=== PATIENT | male | born 1970 | race Caucasian/White ===

== ENCOUNTER 2016-10-17 00:29 | Emergency (ER) | payer OTHER ==
[2016-10-17 00:37] VITALS: BP 130/90
[2016-10-17] MEDS ORDERED: Tetan/Diph/Pertus SYR(Tdap)* 0.5 ML SYR(BOOSTRIX) use SYR IM ONE (01:06)
--- NOTE | 2016-10-17 01:10 | ED ---
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 The volar aspect of the finger was pinched in a hinge of the pond. His is not sure if his tetanus is up to date. He washed the area with tap water and soap. He denies N/T and is able to move the digit fully. - History of Current Complaint Stated Complaint: RIGHT MIDDLE FINGER LAC Hx Obtained From: Patient Mechanism of Injury: Sharp/Blunt Trauma Onset/Duration: Sudden Onset Aggravating: Movement Alleviating: Compression Timing: Constant Onset Severity: Moderate Current Severity: Mild Pain Intensity: 2 Associated Signs & Symptoms: Pain Related Hx: Dominant Hand (Right) - Allergy/Home Medications Allergies/Adverse Reactions: Allergies Allergy/AdvReac Type Severity Reaction Status Date / Time Morphine Allergy Mild Nausea And Verified 10/31/15 08:58 Vomiting PMH/Surg Hx/FS Hx/Imm Hx Endocrine/Hematology History: Denies: Hx Diabetes Cardiovascular History: Denies: Hx Hypertension, Hx Pacemaker/ICD Respiratory History: Reports: Hx Pneumonia - as well as bronchitis Denies: Hx Asthma GI History: Reports: Other GI Disorders - 2006 gastric bypass History: Reports: Hx Kidney Stones - 2009 & CURRENT (10/2015) Denies: Hx Renal Disease Musculoskeletal History: Reports: Hx Arthritis - ALBOWS, FEET, STATES MILD Sensory History: Denies: Hx Hearing Aid Psychiatric History: Denies: Hx Panic Disorder - Surgical History Surgery Procedure, Year, and Place: [place] [facility] [place] BYPASS [facility]. 1999s ANKLE RECONSTRUSTION [place]. 2009 [place] [facility] [place] Anesthesia Reactions: Yes - USUALLY NAUSEA, GFAGS, CAN'T VOMIT Infectious Disease History: No Infectious Disease History: Denies: Traveled Outside the [place] in Last 30 Days - Family History Known Family History: Positive: Unknown - Social History Occupation: Employed Full-time Lives: With Family Alcohol Use: Rare Alcohol Amount: LESS THEN MONTHLY Substance Use Type: Reports: None Hx Tobacco Use: No Smoking Status (MU): Never Smoked Tobacco Have You Smoked in the Last Year: No Review of Systems Positive: Other - 1 cm laceration to right middle finger Negative: Paresthesia, Numbness All Other Systems Reviewed And Are Negative: Yes Physical Exam Triage Information Reviewed: Yes Vital Signs On Initial Exam: Initial Vitals Temp Pulse Resp BP Pulse Ox 97.9 F 60 18 130/90 99 10/17/16 00:34 10/17/16 00:34 10/17/16 00:34 10/17/16 00:34 10/17/16 00:34 Vital Signs Reviewed: Yes Appearance: Positive: Well-Appearing, No Pain Distress, Obese Skin: Positive: Warm, Skin Color Reflects Adequate Perfusion, Dry, Tender - 1 cm long laceration to dorsum of right middle finger, Soft Head/Face: Positive: Normal Head/Face Inspection Eyes: Positive: EOMI, NIYAH, Conjunctiva Clear ENT: Positive: Hearing grossly normal Respiratory/Lung Sounds: Positive: Breath Sounds Present Cardiovascular: Positive: RRR Musculoskeletal: Positive: Strength/ROM Intact, Edema Right - middle finger Neurological: Positive: Sensory/Motor Intact, Alert, Oriented to Person Place, Time, NV Bundle Intact Distally, Normal Gait Psychiatric: Positive: Affect/Mood Appropriate AVPU Assessment: Alert Procedures - Laceration/Wound Repair 1 Location: upper extremity - right middle finger Description: Linear Anesthesia: Local, 2.0%, Lido Length, Depth and Shape: 1 cm long, 4mm wide, 2 mm deep Betadine Prep?: No Irrigated w/ Saline (ccs): 100 Laceration/Wound Explored: clean Closure: Single Layer Debridement: minimal Suture Type: Nylon - 5.0 Number of Sutures: 5 - 4 vertical matresses, 1 simple interupted Layer Closure?: No Sterile Dressing Applied?: Yes Diagnostics - Vital Signs Vital Signs Temp Pulse Resp BP Pulse Ox 10/17/16 00:37 97.9 F 63 18 130/90 98 10/17/16 00:34 97.9 F 60 18 130/90 99 - Laboratory Lab Statement: Any lab studies that have been ordered have been reviewed, and results considered in the medical decision making process. Laceration Repair Course/Dx - Differential Dx Differental Diagnoses: Abrasion, Avulsion, Compartment Syndrome, Hematoma, Laceration, Puncture Wound - Clinical Impression Provider Diagnoses: Laceration of finger of right hand, Tetanus toxoid inoculation Discharge - Discharge Plan Condition: Stable Disposition: HOME Patient Education Materials: Finger Laceration (ED) Referrals: Robert Dennis MD [Primary Care Provider] - Additional Instructions: Keep your dressing clean, dry and in place for the next 24 hours. You may then remove and shower. Pat dry and cover with a clean, dry band-aid if you are going to be in a "dirty" environment, otherwise it can remain open to air. Do not soak the wound in any body of water until the sutures are removed. Elevate the hand above your heart and use Ibuprofen 600mg three times daily with meals for the next 5-7 days to reduce pain and swelling. Follow-up with your primary care provider or return to the emergency department in 10-12 days for suture removal. Return to the emergency department sooner if your symptoms worsen
== END 2016-10-17 01:18 | disposition home or self-care (01) ==
LOC: ED 00:29
DX: S61.212A Laceration without foreign body of right middle finger without damage to nail, initial encounter (principal); S61.218A Laceration without foreign body of other finger without damage to nail, initial encounter; W45.8XXA Other foreign body or object entering through skin, initial encounter; Y93.9 Activity, unspecified; Y92.9 Unspecified place or not applicable
CPT/HCPCS: 12001; 90471; 90715; 99282

== ENCOUNTER 2016-12-11 11:12 | Emergency (ER) | payer OTHER ==
--- NOTE | 2016-12-11 12:57 | RAD ---
HISTORY: Fall, left knee pain COMPARISONS: None VIEWS: 4, Frontal, lateral, axial, and oblique views of the left knee FINDINGS: BONE DENSITY: Normal. BONES: There is no displaced fracture. JOINTS: There is no arthropathy. There is a large suprapatellar joint effusion. There is no appreciable lipohemarthrosis. ALIGNMENT: There is no dislocation. SOFT TISSUES: Unremarkable. OTHER FINDINGS: None. IMPRESSION: NO ACUTE OSSEOUS INJURY. JOINT EFFUSION. IF SYMPTOMS PERSIST, RECOMMEND REPEAT IMAGING.
[2016-12-11 13:24] VITALS: BP 134/77
--- NOTE | 2016-12-11 16:26 | ED ---
Lower Extremity - HPI Summary HPI Summary: Patient presents to ED with left knee pain after injury during a softball game yesterday. He states the mechanism of injury included running and abruptly stopping and twisting his knee. Knee is swollen with no ecchymosis surrounding. He states there is stiffness and tightness over the knee. Denies pain at rest. Pain worse with flexing the knee. Patient states there was laxity and instability when walking. Denies other injuries. - History of Current Complaint Chief Complaint: EDExtremityLower Stated Complaint: LEFT KNEE PAIN, Time Seen by Provider: 12/11/16 11:41 Hx Obtained From: Patient Mechanism Of Injury: Twisted Onset of Pain: Immediate Onset/Duration: Hours Severity Initially: Moderate Severity Currently: Moderate Pain Intensity: 3 Pain Scale Used: 0-10 Numeric Timing: Constant Location: Is Discrete @ - left knee Character Of Pain: Aching Associated Signs And Symptoms: Positive: Swelling Aggravating Factor(s): Standing, Ambulation, Movement, Weight Bearing, Stairs Alleviating Factor(s): Rest Able to Bear Weight: No - Risk Factors Gout Risk Factors: Negative DVT Risk Factors: Negative Septic Arthritis Risk Factor: Negative - Allergies/Home Medications Allergies/Adverse Reactions: Allergies Allergy/AdvReac Type Severity Reaction Status Date / Time Morphine Allergy Mild Nausea And Verified 12/11/16 11:17 Vomiting PMH/Surg Hx/FS Hx/Imm Hx Previously Healthy: Yes Endocrine/Hematology History: Denies: Hx Diabetes Cardiovascular History: Denies: Hx Hypertension, Hx Pacemaker/ICD Respiratory History: Reports: Hx Pneumonia - as well as bronchitis Denies: Hx Asthma GI History: Reports: Other GI Disorders - 2006 gastric bypass History: Reports: Hx Kidney Stones - 2009 & CURRENT (10/2015) Denies: Hx Renal Disease Musculoskeletal History: Reports: Hx Arthritis - ALBOWS, FEET, STATES MILD Sensory History: Denies: Hx Hearing Aid Psychiatric History: Denies: Hx Panic Disorder - Surgical History Surgery Procedure, Year, and Place: 1996 APPENDECTOMY, [facility] [place]. 2006 GASTRIC BYPASS [facility]. 1999s AN[place]LE RECONSTRUSTION [place]. 2010 RT URETEROSCOPY [facility] [place] Hx Anesthesia Reactions: Yes - USUALLY NAUSEA, GFAGS, CAN'T VOMIT - Immunization History Hx Pertussis Vaccination: No Immunizations Up to Date: Unable to Obtain/Confirm Infectious Disease History: No Infectious Disease History: Denies: Traveled Outside the [place] in Last 30 Days - Family History Known Family History: Positive: Unknown - Social History Occupation: Employed Full-time Lives: With Family Alcohol Use: Rare Alcohol Amount: LESS THEN MONTHLY Hx Substance Use: No Substance Use Type: Reports: None Hx Tobacco Use: No Smoking Status (MU): Never Smoked Tobacco Have You Smoked in the Last Year: No Review of Systems Constitutional: Negative Cardiovascular: Negative Respiratory: Negative Positive: no symptoms reported, see HPI Positive: Arthralgia, Myalgia Skin: Negative Neurological: Negative Psychological: Normal All Other Systems Reviewed And Are Negative: Yes Physical Exam Triage Information Reviewed: Yes Vital Signs On Initial Exam: Initial Vitals Temp Pulse Resp BP Pulse Ox 96.9 F 62 18 134/88 100 12/11/16 11:18 12/11/16 11:18 12/11/16 11:18 12/11/16 11:18 12/11/16 11:18 Vital Signs Reviewed: Yes Appearance: Positive: Well-Appearing, No Pain Distress, Well-Nourished Skin: Positive: Warm, Skin Color Reflects Adequate Perfusion Head/Face: Positive: Normal Head/Face Inspection Eyes: Positive: NIYAH, Conjunctiva Clear Neck: Positive: Supple, No Lymphadenopathy Respiratory/Lung Sounds: Positive: Clear to Auscultation, Breath Sounds Present Cardiovascular: Positive: Normal, RRR Musculoskeletal: Positive: Pain @ - left knee pain; anterior drawer positive; lachmans positive; posterior drawer negative Neurological: Positive: Alert, Oriented to Person Place, Time, Speech Normal Psychiatric: Positive: Normal AVPU Assessment: Alert Diagnostics - Vital Signs Vital Signs Temp Pulse Resp BP Pulse Ox 12/11/16 13:23 97.8 F 66 17 134/77 12/11/16 11:18 96.9 F 62 18 134/88 100 - Laboratory Lab Statement: Any lab studies that have been ordered have been reviewed, and results considered in the medical decision making process. Lower Extremity Course/Dx - Course Course Of Treatment: Patient presents s/p left knee injury with left knee pain and swelling. Xray negative for acute findings. Likely acl injury. Anterior drawer and Lachmans test positive. Knee immobilizer given. Crutches given. Ibuprofen 600mg three times daily. Follow up with Dr. Morgan. - Diagnoses Differential Diagnosis/HQI/PQRI: Positive: Contusion, Fracture (Closed), Fracture (Open), Strain Provider Diagnoses: Knee sprain Discharge - Discharge Plan Condition: Stable Disposition: HOME Patient Education Materials: Swollen Knee Joint (ED), Knee Pain (ED) Referrals: Robert Dennis MD [Primary Care Provider] - Malinda Morgan MD [Medical Doctor] - Additional Instructions: Follow up with Dr. Morgan rest, ice, compression of the injured knee, and elevation of the affected lower extremity. Crutches for instability Ibuprofen 600mg three times daily for pain
== END 2016-12-11 13:30 | disposition home or self-care (01) ==
LOC: ED 11:12
DX: S83.92XA Sprain of unspecified site of left knee, initial encounter (principal); X58.XXXA Exposure to other specified factors, initial encounter; Y93.9 Activity, unspecified; Y92.9 Unspecified place or not applicable
CPT/HCPCS: 99282

== ENCOUNTER 2019-07-31 22:26 | Emergency (ER) | payer OTHER ==
[2019-08-01] MEDS ORDERED: Amoxicillin/Clavulanate TAB* 875 MG PO ONE (00:16)
--- NOTE | 2019-08-01 00:26 | ED ---
Bite Injury/Animal - HPI Summary HPI Summary: Patient complains of dog bite to left hand with puncture wounds in the distal webbing between first and second digits of left hand and also of lateral proximal palmar surface of left hand. 2 abrasions to distal second and third digits. - History of Current Complaint Chief Complaint: EDAnimalBite Stated Complaint: DOG BITE PER PT Time Seen by Provider: 08/01/19 00:13 Hx Obtained From: Patient Onset of Injury: Happened minutes ago Type of Bite: Pet Has Animal Been Immunized?: Yes Severity Initially: Moderate Severity Currently: Moderate Pain Intensity: 7 Pain Scale Used: 0-10 Numeric Character: Puncture, Abrasion/Laceration Associated Signs And Symptoms: Positive: Swelling Animal Available for Observation: Yes - Allergies/Home Medications Allergies/Adverse Reactions: Allergies Allergy/AdvReac Type Severity Reaction Status Date / Time morphine Allergy Nausea And Verified 02/21/19 13:10 Vomiting PMH/Surg Hx/FS Hx/Imm Hx Endocrine/Hematology History: Denies: Hx Diabetes Cardiovascular History: Denies: Hx Hypertension, Hx Pacemaker/ICD Respiratory History: Reports: Hx Pneumonia - as well as bronchitis Denies: Hx Asthma GI History: Reports: Other GI Disorders - 2006 gastric bypass History: Reports: Hx Kidney Stones - 2009 & CURRENT (10/2015) Denies: Hx Renal Disease Musculoskeletal History: Reports: Hx Arthritis - ALBOWS, FEET, STATES MILD Sensory History: Denies: Hx Hearing Aid Opthamlomology History: Denies: Hx Legally Blind EENT History: Denies: Hx Deafness Neurological History: Denies: Hx Dementia Psychiatric History: Denies: Hx Panic Disorder - Surgical History Surgery Procedure, Year, and Place: 1996 [place]OMY, [facility] [place]. 2006 GASTRIC BYPASS [facility]. 2000s ANKLE RT RECONSTRUSTION [place]. 2010 RT URETEROSCOPY [facility] Hx Anesthesia Reactions: Yes - USUALLY NAUSEA, GFAGS, CAN'T VOMIT Infectious Disease History: No Infectious Disease History: Denies: Traveled Outside the [place] in Last 30 Days - Family History Known Family History: Positive: Unknown - Social History Alcohol Use: Rare Alcohol Amount: LESS THEN MONTHLY Hx Substance Use: No Substance Use Type: Reports: None Hx Tobacco Use: No Smoking Status (MU): Never Smoked Tobacco Have You Smoked in the Last Year: No Review of Systems Constitutional: Negative Eyes: Negative ENT: Negative Cardiovascular: Negative Respiratory: Negative Gastrointestinal: Negative Genitourinary: Negative Musculoskeletal: Negative Skin: Other Neurological: Negative Psychological: Normal All Other Systems Reviewed And Are Negative: Yes Physical Exam - Summary Physical Exam Summary: Patient has full range of motion at each individual joint of left hand. Normal flexion and extension of left wrist. No erythema, ecchymosis, deformity noted. Mild swelling. Triage Information Reviewed: Yes Vital Signs On Initial Exam: Initial Vitals Temp Pulse Resp BP Pulse Ox 98.2 F 63 20 139/93 95 07/31/19 22:33 07/31/19 22:33 07/31/19 22:33 07/31/19 22:33 07/31/19 22:33 Vital Signs Reviewed: Yes Appearance: Positive: Well-Appearing Skin: Positive: Warm Head/Face: Positive: Normal Head/Face Inspection Neck: Positive: Supple Respiratory/Lung Sounds: Positive: Clear to Auscultation Cardiovascular: Positive: Normal Abdomen Description: Positive: Nontender Musculoskeletal: Positive: Normal Neurological: Positive: Normal Psychiatric: Positive: Normal AVPU Assessment: Alert - [place] Coma Scale Best Eye Response: 4 - Spontaneous Best Motor Response: 6 - Obeys Commands Best Verbal Response: 5 - Oriented Coma Scale Total: 15 Procedures - Sedation Patient Received Moderate/Deep Sedation with Procedure: No Diagnostics - Vital Signs Vital Signs Temp Pulse Resp BP Pulse Ox 07/31/19 22:33 98.2 F 63 20 139/93 95 - Laboratory Lab Statement: Any lab studies that have been ordered have been reviewed, and results considered in the medical decision making process. Bite Injury Course/Dx - Course Course Of Treatment: Patient complains of dog bite to left hand with puncture wounds in the distal webbing between first and second digits of left hand and also of lateral proximal palmar surface of left hand. 2 abrasions to distal second and third digits. Vital signs within normal limits. Puncture wounds, no indication for suturing. Patient started on Augmentin. - Diagnoses Provider Diagnosis: Dog bite, Pain in left [place] Discharge ED - Sign-Out/Discharge Documenting (check all that apply): Patient Departure - Discharge Plan Condition: Stable Disposition: HOME Prescriptions: Amoxicillin/Clavulanate TAB* [Augmentin TAB 875*] 875 mg PO BID #20 tab Oxycodone HCl 5 mg PO BID 3 Days #6 tablet MDD 3 tabs Patient Education Materials: Animal Bite (ED), Leg Pain (ED) Referrals: Robert Dennis MD [Primary Care Provider] - Additional Instructions: Alternate ibuprofen 600 mg with Tylenol 650 mg every 3 hours for pain. Take antibiotics as directed. Keep hand clean and dry. Return to the ED for any new or worsening symptoms. - Billing Disposition and Condition Condition: STABLE Disposition: Home
[2019-08-01] MEDS ORDERED: oxyCODONE TAB* 5 MG TAB PO ONE (00:54)
[2019-08-01 01:08] VITALS: BP 128/93
== END 2019-08-01 01:08 | disposition home or self-care (01) ==
LOC: ED 22:26
DX: S81.852A Open bite, left lower leg, initial encounter (principal); W54.0XXA Bitten by dog, initial encounter; Y92.9 Unspecified place or not applicable; Z87.442 Personal history of urinary calculi
CPT/HCPCS: 99282; A9270-GY

== ENCOUNTER 2021-07-21 13:30 | Observation (INO) ==
[2021-07-21] MEDS ORDERED: Lactated Ringers 1000 ml BAG 1,000 ML IV ONE ×2 (13:56→14:08)
[2021-07-21] MEDS ORDERED: Dexamethasone IV 4 MG/ML VIAL 1 ml VIAL IV SLOW PU ONE (14:04)
[2021-07-21] MEDS ORDERED: Albuterol HFA INHALER 8 gm MDI INH ONE (14:05)
[2021-07-21 14:09] LABS: Hematocrit 45 % (42-52); Hemoglobin 15.6 g/dL (14.0-18.0); Mean Corpuscular HGB Conc 35 g/dL (31-36); Mean Corpuscular Hemoglobin 31 pg (27-31); Mean Corpuscular Volume 89 fL (80-94); Mean Platelet Volume 9.2 fL (7.4-10.4); Platelet Count 207 10^3/uL (150-450); Red Blood Count 5.01 10^6 /uL (4.18-5.48); Red Cell Distribution Width 15 % (10-15); White Blood Count 3.7 10^3/uL (3.5-10.8)
[2021-07-21 14:27] LABS: PO2 Arterial 116 mmHg (80-100)
[2021-07-21 14:28] LABS: Activated Partial Thrombo Time 32.6 seconds (26.0-38.0); INR 1.37 (0.86-1.15)
[2021-07-21 14:30] LABS: Albumin 4.2 g/dL (3.2-5.2); Albumin/Globulin Ratio 1.2 (1-3); C Reactive Protein 19.56 mg/L (<8.01); Calcium 8.8 mg/dL (8.6-10.3); Globulin 3.5 g/dL (2-4); Potassium 3.3 mmol/L (3.5-5.0); Total Bilirubin 0.8 mg/dL (0.2-1.0); Total Protein 7.7 g/dL (6.4-8.9); eGFR CKD-EPI 75.2 (>60)
[2021-07-21 14:31] LABS: PCO2 Arterial <20 mmHg (35-45)
[2021-07-21 14:40] LABS: Troponin I 0.01 ng/mL (<0.03)
[2021-07-21] MEDS ORDERED: LORazepam 2 mg VIAL 1 ml IV PUSH ONE (14:40)
[2021-07-21] MEDS ORDERED: Lorazepam PYXIS KEY PRN (14:40)
[2021-07-21 14:53] LABS: ABS Lymphocytes 1.6 10^3/ul (1.0-4.8); ABS Monocytes 0.4 10^3/ul (0-0.8); ABS Neutrophils 1.7 10^3/ul (1.5-7.7); Eosinophil % 0.1 %; Lymphocyte % 44.3 %; Nucleated Red Blood Cells % 0.5
[2021-07-21] MEDS ORDERED: Iohexol 350 (CONTRAST) 500 ML MDV IV ONE (15:08)
[2021-07-21 17:08] LABS: PCO2 Arterial 22 mmHg (35-45); PO2 Arterial 103 mmHg (80-100)
[2021-07-21] MEDS ORDERED: Potassium Chlor 20 meq TAB.ER PO ONE (18:13)
[2021-07-21] MEDS ORDERED: Ondansetron 4 mg VIAL 2 MG/ML 2 ml VIAL IV PRN (18:48)
[2021-07-21] MEDS ORDERED: Albuterol HFA INHALER 8 gm MDI INH PRN (18:52)
[2021-07-21] MEDS ORDERED: guaiFENesin/CODIENE 100mg/10mg 5 ML UDC PO PRN (18:52)
[2021-07-21] MEDS ORDERED: Remdesivir 100 mg Vial 200 MG in NS 0.9% 250 ml 210 ML IV ONE (18:53)
[2021-07-21 19:03] LABS: Magnesium 2.1 mg/dL (1.9-2.7)
[2021-07-21] MEDS: Enoxaparin 40 MG/0.4 ML SYR SUBCUT SCH (20:23)
[2021-07-21] MEDS: Lactated Ringers 1000 ml BAG 1,000 ML IV SCH (22:17)
[2021-07-21] MEDS: Calcium Polycarbophil 625mg TB PO SCH (22:18)
[2021-07-22 06:39] LABS: Hematocrit 39 % (42-52); Hemoglobin 13.3 g/dL (14.0-18.0); Mean Corpuscular HGB Conc 34 g/dL (31-36); Mean Corpuscular Hemoglobin 31 pg (27-31); Mean Corpuscular Volume 90 fL (80-94); Mean Platelet Volume 9.2 fL (7.4-10.4); Platelet Count 159 10^3/uL (150-450); Red Blood Count 4.33 10^6 /uL (4.18-5.48); Red Cell Distribution Width 15 % (10-15); White Blood Count 1.8 10^3/uL (3.5-10.8)
[2021-07-22 06:44] LABS: INR 1.26 (0.86-1.15)
[2021-07-22 06:46] LABS: ABS Neutrophils 0.9 10^3/ul (1.5-7.7)
[2021-07-22 06:57] LABS: Albumin 3.6 g/dL (3.2-5.2); Albumin/Globulin Ratio 1.2 (1-3); Calcium 8.1 mg/dL (8.6-10.3); Globulin 3.1 g/dL (2-4); Potassium 4.3 mmol/L (3.5-5.0); Total Bilirubin 0.4 mg/dL (0.2-1.0); Total Protein 6.7 g/dL (6.4-8.9); eGFR CKD-EPI 107.4 (>60)
[2021-07-22 07:42] LABS: ABS Lymphocytes 0.7 10^3/ul (1.0-4.8); ABS Monocytes 0.2 10^3/ul (0-0.8); Eosinophil % 0.1 %; Nucleated Red Blood Cells % 0.1
[2021-07-22] MEDS: Calcium Polycarbophil 625mg TB PO SCH ×2 (09:16→21:46)
[2021-07-22] MEDS: Lactated Ringers 1000 ml BAG 1,000 ML IV SCH ×2 (09:17→22:49)
[2021-07-22] MEDS: Enoxaparin 40 MG/0.4 ML SYR SUBCUT SCH (19:55)
[2021-07-22] MEDS ORDERED: Remdesivir 100 mg Vial 100 MG in NS 0.9% 250 ml 230 ML IV SCH (21:00)
[2021-07-23 06:32] LABS: INR 1.22 (0.86-1.15)
[2021-07-23 06:35] LABS: Albumin 3.2 g/dL (3.2-5.2); Albumin/Globulin Ratio 1.2 (1-3); Calcium 7.9 mg/dL (8.6-10.3); Globulin 2.7 g/dL (2-4); Total Bilirubin 0.3 mg/dL (0.2-1.0); Total Protein 5.9 g/dL (6.4-8.9); eGFR CKD-EPI 111.8 (>60)
[2021-07-23 07:07] VITALS: BP 104/76
[2021-07-23 07:30] LABS: ABS Lymphocytes 0.8 10^3/ul (1.0-4.8); ABS Monocytes 0.3 10^3/ul (0-0.8); ABS Neutrophils 2.8 10^3/ul (1.5-7.7); Hematocrit 37 % (42-52); Hemoglobin 12.5 g/dL (14.0-18.0); Lymphocyte % 20.5 %; Mean Corpuscular HGB Conc 34 g/dL (31-36); Mean Corpuscular Hemoglobin 31 pg (27-31); Mean Corpuscular Volume 90 fL (80-94); Mean Platelet Volume 9.9 fL (7.4-10.4); Nucleated Red Blood Cells % 0.1; Platelet Count 159 10^3/uL (150-450); Red Blood Count 4.12 10^6 /uL (4.18-5.48); Red Cell Distribution Width 14 % (10-15); White Blood Count 3.9 10^3/uL (3.5-10.8)
[2021-07-23] MEDS: Calcium Polycarbophil 625mg TB PO SCH (08:19)
[2021-07-23] MEDS: Lactated Ringers 1000 ml BAG 1,000 ML IV SCH (08:21)
== END 2021-07-23 12:00 | disposition home or self-care (01) ==
LOC: ED 13:30 → MED 13:30
PROVIDERS: ADMIT Hospitalist; ATTEND Hospitalist